=== PATIENT | female | born 1990 | race African-American/Black ===

== ENCOUNTER 2017-05-10 23:20 | Emergency (ER) | payer SELFPAY ==
[~2017-05-10] VITALS: Ht 162.6 cm; Wt 81.6 kg
[2017-05-10 23:23] VITALS: BP 137/90
--- NOTE | 2017-05-10 23:31 | NUR ---
TO LOBBY, A/W CHUCHO SHAIKH ERMD NOTED
--- NOTE | 2017-05-11 00:55 | NUR ---
PT. AMBULATED TO ER BED 3
--- NOTE | 2017-05-11 01:05 | NUR ---
PATIENT PRESENTS TO ED WITH C/O GEN BODY ACHES X 1 DA . PT DENIES N/V/D; SKIN IS PINK/WARM/DRY; AAOX4 WITH EVEN AND STEADY GAIT; LUNGS CLEAR BL; HR EVEN AND REGULAR; PT DENIES ANY FEVER, CP, SOB, OR COUGH AT THIS TIME; PATIENT STATES PAIN OF 10/10 AT THIS TIME; VSS; PATIENT POSITIONED FOR COMFORT; HOB ELEVATED; BEDRAILS UP X2; BED DOWN. ER MD MADE AWARE OF PT STATUS.
--- NOTE | 2017-05-11 01:17 | NUR ---
PT. AMBULATED TO ER OF 3
[2017-05-11] MEDS ORDERED: CYCLOBENZAPRINE 10 MG TAB PO ONE (01:20)
[2017-05-11] MEDS ORDERED: IBUPROFEN 600 MG TAB PO ONE (01:20)
[2017-05-11 02:16] VITALS: BP 138/87
--- NOTE | 2017-05-11 02:17 | NUR ---
Patient discharged with v/s stable. Written and verbal after care instructions given and explained. Patient alert, oriented and verbalized understanding of instructions. Ambulatory with steady gait. All questions addressed prior to discharge. ID band removed. Patient advised to follow up with PMD. Rx of FLEXERIL 10 MG, MOTRIN 600 MG given. Patient educated on indication of medication including possible reaction and side effects. Opportunity to ask questions provided and answered.
== END 2017-05-11 02:17 | disposition home or self-care (01) ==
LOC: MED 23:20
DX: M62.830 Muscle spasm of back (principal)
CPT/HCPCS: 99283

== ENCOUNTER 2018-01-18 04:17 | Emergency (ER) | payer SELFPAY ==
[~2018-01-18] VITALS: Ht 167.6 cm; Wt 84.4 kg
--- NOTE | 2018-01-18 04:25 | NUR ---
PT PRESENTS TO ED WITH LEFT EAR PAIN, 10/, X3 DAYS. LEFT EAR CANAL EDEMA, NO REDNESS OR DRAINAGE, EXCESS CERUMEN. PT IS AFEBRILE. A&OX4. POSITIONED IN BED FOR COMFORT WITH VSS. ER MD AWARE. CONTINUE TO MONITOR.
--- NOTE | 2018-01-18 04:25 | NUR ---
PT AMBULATED TO BED 2 WITH VSS.
[2018-01-18 04:29] VITALS: BP 184/121
[2018-01-18] MEDS ORDERED: fentaNYL 0.05 MG/ML VIAL IM ONE (04:40)
[2018-01-18 05:10] VITALS: BP 184/121
--- NOTE | 2018-01-18 05:10 | NUR ---
Patient discharged with v/s stable and decreased pain. Written and verbal after care instructions given and explained. Patient alert, oriented and verbalized understanding of instructions. Ambulatory with steady gait. All questions addressed prior to discharge. ID band removed. Patient advised to follow up with PMD. Rx of Motrin and Ciprodex given. Patient educated on indication of medication including possible reaction and side effects. Opportunity to ask questions provided and answered.
== END 2018-01-18 05:10 | disposition home or self-care (01) ==
LOC: MED 04:17
DX: H60.502 Unspecified acute noninfective otitis externa, left ear (principal); R03.0 Elevated blood-pressure reading, without diagnosis of hypertension
CPT/HCPCS: 96372; 99283; J3010; 99284

== ENCOUNTER 2019-03-19 20:18 | Emergency (ER) | payer SELFPAY ==
[~2019-03-19] VITALS: Ht 167.6 cm; Wt 85.7 kg
[2019-03-19 20:22] VITALS: BP 158/94
--- NOTE | 2019-03-19 20:48 | NUR ---
PT TO ER BED 4
--- NOTE | 2019-03-19 20:51 | NUR ---
29 Y/O F PRESENTS TO ED WITH C/O HEAVY CHEST PAIN THAT HAS BEEN ONGOING FOR THREE MONTHS. PATIENT CAME IN TO ED BECAUSE OF WORSENING SYMPTOMS THAT IS PREVENTING PATIENT FROM PERFORMING ADL'S AND WORKING. PATIENT REPORTS GETTING WINDED AND HAS TO SIT DOWN TO ALLEVIATE PRESSURE IN CHEST. NKA, NO PAST MEDICAL HX, DOES NOT TAKE MEDICATION FOR SYMPTOMS. PT REPORTS PAIN CAUSES HEADACHES AND DIZZINESS, RATES PAIN 8/10. REPORTS + FAMILY HISTORY OF HTN. BP- 153/98. SIDERAILS UPx1, FRIEND AT BEDSIDE. WILL CONTINUE TO MONITOR.
[2019-03-19] MEDS ORDERED: KETOROLAC 30 MG/ML VIAL IM ONE (21:15)
[2019-03-19 21:35] LABS: BASOPHILS # (AUTO) 0.1 K/uL (0.00-0.22); BASOPHILS % (AUTO) 1.3 % (0.0-2.0); EOSINOPHILS # (AUTO) 0.1 K/uL (0-0.4); EOSINOPHILS % (AUTO) 0.9 % (0.0-4.0); HEMATOCRIT 28.1 % (36-48); LYMPHOCYTES # (AUTO) 1.6 K/uL (2.5-16.5); MEAN CORPUSCULAR HEMOGLOBIN 16 pg (27-31); MEAN CORPUSCULAR HGB CONC 28 g/dL (33-37); MEAN CORPUSCULAR VOLUME 58.2 fL (80-94); MONOCYTES # (AUTO) 0.4 K/uL (0.8-1.0); MONOCYTES % (AUTO) 6.7 % (1.7-9.3); NEUTROPHILS # (AUTO) 4.3 K/uL (1.8-7.7); NEUTROPHILS % (AUTO) 66.1 % (42.2-75.2); PLATELET COUNT (AUTO) 274 K/uL (140-450); RED BLOOD CELL COUNT(AUTO) 4.84 MIL/uL (4.20-5.40); RED CELL DISTRIBUTION WIDTH 20.8 % (11.6-13.7); WHITE BLOOD COUNT (AUTO) 6.5 K/uL (4.8-10.8)
--- NOTE | 2019-03-19 21:35 | NUR ---
PATIENT AMBULATED TO RESTROOM FOR URINE SAMPLE, NO INCIDENTS AND NO COMPLAINTS OF GETTING WINDED. PATIENT ABLE TO MAKE FULL SENTENCES, RESPIRATIONS ARE EVEN AND UNLABORED. URINE SAMPLE COLLECTED.
[2019-03-19 22:11] LABS: PROTHROMBIN TIME 9.7 secs (10.8-13.4)
[2019-03-19 22:15] LABS: APPEARANCE,URINE SL CLOUDY (CLEAR); BILIRUBIN,URINE NEGATIVE (NEGATIVE); BLOOD, URINE TRACE-I (NEGATIVE); COLOR,URINE YELLOW (YELLOW); LEUKOCYTE ESTERASE ,URINE 1+ (NEGATIVE); NITRITE, URINE NEGATIVE (NEGATIVE); PH,URINE 6.5 (5.0-9.0); UGLUCOSE NEGATIVE (NEGATIVE)
[2019-03-19 22:27] LABS: WBC,URINE TOO MANY TO COUNT /HPF (0-5)
[2019-03-19 22:36] LABS: ANION GAP 12.9 (8-16); CARBON DIOXIDE 25.8 mmol/L (21-32); POTASSIUM 3.7 mmol/L (3.5-5.1)
[2019-03-19 22:37] LABS: CREATININE 0.7 mg/dL (0.6-1.3); TOTAL BILIRUBIN 0.5 mg/dL (0.0-1.0)
[2019-03-19 22:38] LABS: ALBUMIN 3.8 g/dL (3.4-5.0)
--- NOTE | 2019-03-19 23:08 | NUR ---
Dr. England examining patient.
[2019-03-19 23:32] VITALS: BP 148/96
--- NOTE | 2019-03-19 23:33 | NUR ---
Patient discharged with v/s stable. Written and verbal after care instructions given and explained. Patient alert, oriented and verbalized understanding of instructions. Ambulatory with steady gait. All questions addressed prior to discharge. ID band removed. Patient advised to follow up with PMD. Rx of NAPROSYN AND FEOSOL given. Patient educated on indication of medication including possible reaction and side effects. Opportunity to ask questions provided and answered.
== END 2019-03-19 23:33 | disposition home or self-care (01) ==
LOC: MED 20:18
DX: R07.9 Chest pain, unspecified (principal); D64.9 Anemia, unspecified
CPT/HCPCS: 36415; 71045; 80053; 81001; 81025; 83880; 84484; 85025; 85610; 85730; 87086; 93005; 96372; 99284; J1885; Q0092

== ENCOUNTER 2019-04-28 08:50 | Emergency (ER) | payer SELFPAY ==
[~2019-04-28] VITALS: Ht 170.2 cm; Wt 84.8 kg
[2019-04-28 09:01] VITALS: BP 184/112
--- NOTE | 2019-04-28 09:01 | NUR ---
Patient ambulated to bed 1. RN evaluating patient at bedside.
[2019-04-28] MEDS ORDERED: cloNIDine 0.1 MG TAB PO ONE (09:25)
--- NOTE | 2019-04-28 09:52 | NUR ---
C/O PRESSURE TYPE HEADACHES, INCREASED IN FREQUENCY ---STATED YESTERDAY AND AWOKE WITH SEVERE PAIN TODAY ; NAUSEA DIZZINESS.PT AWAKE ,ALERT,AFEBRILE. DENIES RECENT INJURY--FULL CLEAR SPEECH, AMBULATORY WITH STEADY GAIT, NO FACIAL ASYMMETRY NOTED HX--MIGRAINE , ANEMIA RX--IRON
--- NOTE | 2019-04-28 09:57 | NUR ---
PT PAIN LEVEL AT 0/10.
[2019-04-28 10:54] LABS: BASOPHILS # (AUTO) 0.1 K/uL (0.00-0.22); BASOPHILS % (AUTO) 1.8 % (0.0-2.0); EOSINOPHILS # (AUTO) 0.1 K/uL (0-0.4); EOSINOPHILS % (AUTO) 1.8 % (0.0-4.0); HEMATOCRIT 28.8 % (36-48); HEMOGLOBIN 8.3 g/dL (12.0-16.0); LYMPHOCYTES # (AUTO) 1.1 K/uL (2.5-16.5); LYMPHOCYTES % (AUTO) 22.8 % (20.5-51.1); MEAN CORPUSCULAR HEMOGLOBIN 18 pg (27-31); MEAN CORPUSCULAR HGB CONC 29 g/dL (33-37); MEAN CORPUSCULAR VOLUME 61.8 fL (80-94); MONOCYTES # (AUTO) 0.4 K/uL (0.8-1.0); MONOCYTES % (AUTO) 7.6 % (1.7-9.3); NEUTROPHILS # (AUTO) 3.1 K/uL (1.8-7.7); PLATELET COUNT (AUTO) 222 K/uL (140-450); RED BLOOD CELL COUNT(AUTO) 4.66 MIL/uL (4.20-5.40); RED CELL DISTRIBUTION WIDTH 23.9 % (11.6-13.7); WHITE BLOOD COUNT (AUTO) 4.6 K/uL (4.8-10.8)
[2019-04-28 11:10] LABS: APPEARANCE,URINE CLEAR (CLEAR); BILIRUBIN,URINE NEGATIVE (NEGATIVE); BLOOD, URINE NEGATIVE (NEGATIVE); COLOR,URINE YELLOW (YELLOW); LEUKOCYTE ESTERASE ,URINE NEGATIVE (NEGATIVE); NITRITE, URINE NEGATIVE (NEGATIVE); PH,URINE 8.5 (5.0-9.0); UGLUCOSE NEGATIVE (NEGATIVE)
[2019-04-28 11:19] LABS: ALBUMIN 3.7 g/dL (3.4-5.0); ANION GAP 13.5 (8-16); CARBON DIOXIDE 27.3 mmol/L (21-32); CREATININE 0.6 mg/dL (0.6-1.3); POTASSIUM 3.8 mmol/L (3.5-5.1); THYROID STIMULATING HORMONE 1.32 uIU/mL (0.34-3.74); TOTAL BILIRUBIN 0.3 mg/dL (0.0-1.0)
[2019-04-28] MEDS ORDERED: ONDANSETRON 4 MG ODT PO ONE (11:25)
--- NOTE | 2019-04-28 11:25 | NUR ---
dr esqueda reevaluating pt at bedside.
[2019-04-28 11:59] VITALS: BP 128/82
--- NOTE | 2019-04-28 12:00 | NUR ---
Patient discharged with v/s stable. Written and verbal after care instructions given and explained headache. Patient alert, oriented and verbalized understanding of instructions. Ambulatory with steady gait. All questions addressed prior to discharge. ID band removed. Patient advised to follow up with PMD. Rx of hydrochlorothiazide given. Patient educated on indication of medication including possible reaction and side effects. Opportunity to ask questions provided and answered. Excuse from work given.
== END 2019-04-28 12:00 | disposition home or self-care (01) ==
LOC: MED 08:50
DX: R51 Headache (principal); I10 Essential (primary) hypertension
CPT/HCPCS: 36415; 80053; 81003; 81025; 84443; 84484; 85025; 99283; Q0162

== ENCOUNTER 2019-07-04 09:57 | Emergency (ER) | payer SELFPAY ==
[~2019-07-04] VITALS: Ht 170.2 cm; Wt 80.8 kg
[2019-07-04 10:02] VITALS: BP 138/64
[2019-07-04 10:37] VITALS: BP 138/64
== END 2019-07-04 10:37 | disposition home or self-care (01) ==
LOC: MED 09:57
DX: G43.909 Migraine, unspecified, not intractable, without status migrainosus (principal); I10 Essential (primary) hypertension
CPT/HCPCS: 99283

== ENCOUNTER 2020-01-02 12:24 | Emergency (ER) | payer SELFPAY ==
[~2020-01-02] VITALS: Ht 170.2 cm; Wt 81.6 kg
[2020-01-02 12:36] VITALS: BP 138/111
--- NOTE | 2020-01-02 12:43 | NUR ---
AMB TO BED 2
[2020-01-02 14:03] LABS: BASOPHILS % (AUTO) 0.8 % (0.0-2.0); EOSINOPHILS # (AUTO) 0.1 K/uL (0-0.4); EOSINOPHILS % (AUTO) 2.4 % (0.0-4.0); HEMATOCRIT 35.9 % (36-48); HEMOGLOBIN 11.4 g/dL (12.0-16.0); LYMPHOCYTES # (AUTO) 1.2 K/uL (2.5-16.5); LYMPHOCYTES % (AUTO) 21.7 % (20.5-51.1); MEAN CORPUSCULAR HEMOGLOBIN 24 pg (27-31); MEAN CORPUSCULAR HGB CONC 32 g/dL (33-37); MEAN CORPUSCULAR VOLUME 74.1 fL (80-94); MONOCYTES # (AUTO) 0.7 K/uL (0.8-1.0); MONOCYTES % (AUTO) 13.7 % (1.7-9.3); NEUTROPHILS # (AUTO) 3.4 K/uL (1.8-7.7); NEUTROPHILS % (AUTO) 61.4 % (42.2-75.2); PLATELET COUNT (AUTO) 219 K/uL (140-450); RED BLOOD CELL COUNT(AUTO) 4.84 MIL/uL (4.20-5.40); RED CELL DISTRIBUTION WIDTH 15.5 % (11.6-13.7); WHITE BLOOD COUNT (AUTO) 5.5 K/uL (4.8-10.8)
--- NOTE | 2020-01-02 14:13 | NUR ---
29 Y/O FEMALE C/O RIGHT SIDED BREAST PAIN X9 DAYS. PT STATES PAIN BEGAN ON FIRST DAY OF MENSTRUAL CYCLE AND HAS BEEN INTERMITTENT. PAIN IS SHARP IN CHARACTER AND DOES NOT RADIATE. PT DENIES ANY SOB/COUGH/FEVER AT THIS TIME. NO LUMPS FELT UPON PALPATION. NO ABNORMALITIES NOTED ON BREAST.
[2020-01-02 14:32] LABS: ALBUMIN 3.5 g/dL (3.4-5.0); ANION GAP 13.4 (8-16); CARBON DIOXIDE 26.5 mmol/L (21-32); CREATININE 0.8 mg/dL (0.6-1.3); POTASSIUM 3.9 mmol/L (3.5-5.1); THYROID STIMULATING HORMONE 1.16 uIU/mL (0.34-3.74); TOTAL BILIRUBIN 0.3 mg/dL (0.0-1.0)
[2020-01-02 16:59] LABS: APPEARANCE,URINE HAZY (CLEAR); BILIRUBIN,URINE NEGATIVE (NEGATIVE); BLOOD, URINE NEGATIVE (NEGATIVE); COLOR,URINE YELLOW (YELLOW); LEUKOCYTE ESTERASE ,URINE 1+ (NEGATIVE); NITRITE, URINE NEGATIVE (NEGATIVE); PH,URINE 6.5 (5.0-9.0); UGLUCOSE NEGATIVE (NEGATIVE)
[2020-01-02 17:00] LABS: RBC,URINE NONE SEEN /HPF (0-5); WBC,URINE 0-5 /HPF (0-5)
[2020-01-02 18:25] VITALS: BP 127/87
== END 2020-01-02 18:26 | disposition home or self-care (01) ==
LOC: MED 12:24
DX: R07.9 Chest pain, unspecified (principal); I10 Essential (primary) hypertension
CPT/HCPCS: 36415; 71045; 76641; 80053; 81001; 81025; 84443; 84484; 84702; 85025; 87086; 93005; 99285; Q0092

== ENCOUNTER 2020-03-27 10:20 | Emergency (ER) | payer OTHER, SELFPAY ==
[~2020-03-27] VITALS: Ht 170.2 cm; Wt 88.5 kg
[2020-03-27 10:35] VITALS: BP 152/101
--- NOTE | 2020-03-27 10:35 | NUR ---
Patient in tent for covid precautions
--- NOTE | 2020-03-27 11:13 | NUR ---
C/O COUGH, CHEST PAIN WITH SOB, FEVER, NAUSEA SINCE THANKSGIVING. DENIES COVID CONTACTS. STATES FEVER REOCCURING EVERYDAY. NO MEDS TAKEN TODAY FOR FEVER. TEMP 100.8 TEMPORAL IN TENT
[2020-03-27 11:35] VITALS: BP 152/101
--- NOTE | 2020-03-27 11:35 | NUR ---
Covid swab collected and walked to lab.
--- NOTE | 2020-03-27 11:35 | NUR ---
Patient discharged with v/s stable. Written and verbal after care instructions given and explained. Patient verbalized understanding. Ambulatory with steady gait. All questions addressed prior to discharge. Advised to follow up with PMD.
--- NOTE | 2020-04-01 13:53 | NUR ---
Covid results received from lab. Results = POSITIVE. Hard copy requested from lab and placed in infection controls mailbox.
== END 2020-03-27 11:35 | disposition home or self-care (01) ==
LOC: MED 10:20
DX: U07.1 COVID-19 (principal); I10 Essential (primary) hypertension
CPT/HCPCS: 99283; U0003

== ENCOUNTER 2021-02-17 18:40 | Emergency (ER) | payer OTHER, SELFPAY ==
[~2021-02-17] VITALS: Ht 170.2 cm; Wt 81.6 kg
[2021-02-17 19:03] VITALS: BP 186/104
--- NOTE | 2021-02-17 19:12 | NUR ---
PT AMB TO BED 9.
--- NOTE | 2021-02-17 19:40 | NUR ---
Dr. العلي examining patient.
[2021-02-17] MEDS ORDERED: IBUP-2213 PO (19:56)
--- NOTE | 2021-02-17 19:58 | NUR ---
PT EVALUATED BY ERMD. NO NURSING INTERVENTIONS NEEDED.
[2021-02-17 20:00] VITALS: BP 186/104
== END 2021-02-17 20:00 | disposition home or self-care (01) ==
LOC: MED 18:40
DX: R59.1 Generalized enlarged lymph nodes (principal); R07.9 Chest pain, unspecified; R22.1 Localized swelling, mass and lump, neck; I10 Essential (primary) hypertension
CPT/HCPCS: 99282

== ENCOUNTER 2021-10-19 10:11 | Observation (INO) | payer OTHER ==
[~2021-10-19] VITALS: Ht 170.2 cm; Wt 82.6 kg
[~2021-10-19 10:11] MED LIST: IBUP-2213 PO
[2021-10-19 10:14] VITALS: BP 117/97
[2021-10-19 10:49] LABS: BASOPHILS # (AUTO) 0.1 K/uL (0.00-0.22); BASOPHILS % (AUTO) 1.4 % (0.0-2.0); EOSINOPHILS # (AUTO) 0.1 K/uL (0-0.4); EOSINOPHILS % (AUTO) 2.5 % (0.0-4.0); HEMATOCRIT 27.4 % (36-48); HEMOGLOBIN 7.9 g/dL (12.0-16.0); LYMPHOCYTES # (AUTO) 1.5 K/uL (2.5-16.5); LYMPHOCYTES % (AUTO) 34.9 % (20.5-51.1); MEAN CORPUSCULAR HEMOGLOBIN 17 pg (27-31); MEAN CORPUSCULAR HGB CONC 29 g/dL (33-37); MEAN CORPUSCULAR VOLUME 58.4 fL (80-94); MONOCYTES # (AUTO) 0.4 K/uL (0.8-1.0); MONOCYTES % (AUTO) 10.6 % (1.7-9.3); NEUTROPHILS # (AUTO) 2.1 K/uL (1.8-7.7); NEUTROPHILS % (AUTO) 50.6 % (42.2-75.2); PLATELET COUNT (AUTO) 271 K/uL (140-450); RED BLOOD CELL COUNT(AUTO) 4.69 MIL/uL (4.20-5.40); RED CELL DISTRIBUTION WIDTH 20.9 % (11.6-13.7); WHITE BLOOD COUNT (AUTO) 4.2 K/uL (4.8-10.8)
--- NOTE | 2021-10-19 10:50 | NUR ---
31 y/o female, c/o nausea, gradually worsening chest pain with associated palpitations, radiates to her back and down her arm for 2 weeks. states pain is severe when it comes on and describes it as sharp/burning. states that pcp referred her to sales service route manager because of an abnormal EKG and heart murmur. states says she was told that her ultrasound showed there was a "hole" in her heart. pt scheduled to follow-up with Cardiology on 11/16. pt states her father of a heart attack at age 45. Patient is currently on Losartan, atenolol, and hydrochlorothiazide after going 3 years with no hypertension medication. pmh: htn nka med: losartan, atenolol, hydrochlorothiazine
[2021-10-19] MEDS ORDERED: NITROGLYCERIN 0.4 MG TAB SL ONE (10:55)
[2021-10-19] MEDS ORDERED: ASPIRIN 325 MG TAB PO ONE (10:55)
[2021-10-19 11:11] LABS: ALBUMIN 3.6 g/dL (3.4-5.0); ANION GAP 9.9 (8-16); ASPARTATE AMINOTRANSFERASE 14 U/L (15-37); CHLORIDE 102 mmol/L (98-107); CREATININE 0.7 mg/dL (0.6-1.3); GFR ARICAN-AMERICAN 127 mL/min (>90); GLUCOSE 87 mg/dL (74-106); POTASSIUM 3.9 mmol/L (3.5-5.1); SODIUM SERUM 135 mmol/L (136-145); TOTAL BILIRUBIN 0.5 mg/dL (0.0-1.0); UREA NITROGEN, BLOOD 13 mg/dL (7-18)
[2021-10-19] MEDS ORDERED: ATEN25TA7 PO (11:55)
[2021-10-19] MEDS ORDERED: LOSA25TA43 PO (11:55)
--- NOTE | 2021-10-19 12:08 | NUR ---
ALAN SWAB SENT TO LAB
--- NOTE | 2021-10-19 12:45 | NUR ---
Patient appears to be resting comfortably in bed. Vital Signs within normal limits. Respirations even and unlabored.
--- NOTE | 2021-10-19 13:07 | NUR ---
shaikh eleanor at bedside for pt eval. per , states he will put in admitting orders.
[2021-10-19] MEDS ORDERED: ACETAMINOPHEN 325 MG TAB PO PRN (13:10)
[2021-10-19] MEDS ORDERED: MORPHINE SULFATE 2 MG/ML SYR IVP PRN (13:10)
[2021-10-19] MEDS ORDERED: ONDANSETRON 4 MG/2 ML VIAL IVP PRN (13:10)
--- NOTE | 2021-10-19 14:50 | NUR ---
RECEIVE ENDORSEMENT FROM ER NURSE THAT PATIENT COME FROM HOME W/ CHEST PAIN, NAUSEA, PALPITATION. IN ER NITROGLYCERIN AND ASPIRIN WAS GIVEN. PATIENT IS ADMIT UNDER FOR OBSERVATION STATUS FOR CHEST PAIN. MRSA SPECIMEN COLLECTED. STILL WAIN FOR URINE AT THIS TIME. WILL CONTINUE TO MONITOR.
--- NOTE | 2021-10-19 15:02 | NUR ---
Patient will be admitted to care of Shaikh ESTEPHANIA. Admitted to Telemetry. Will go to room 105B. Belongings list completed. Report to Elenita HOPE.
--- NOTE | 2021-10-19 15:02 | NUR ---
Pt report given to Elenita HOPE. Transfer of care at this time.
[2021-10-19 16:00] VITALS: BP 122/78
--- NOTE | 2021-10-19 19:09 | NUR ---
ENDORSE PT TO PM SHIFT NURSE THAT PATIENT SITTING ON THE BED WITH SISTER AT BEDSIDE. PIV R. FOREARM 20G SALINE LOCK PATENT.
--- NOTE | 2021-10-19 19:30 | NUR ---
RECEIVED PT FROM AM NURSE FOR CONTINUITY OF CARE.PT IS ASTABLE
[2021-10-19 20:00] VITALS: BP 126/78
--- NOTE | 2021-10-19 21:00 | NUR ---
PATIENT IN BED ,NO COMPLAIN OF PAIN NOTED VS WNL,NO DISTRESS NOTED
[2021-10-20] VITALS: BP 111/74
[2021-10-20 04:00] VITALS: BP 136/80
[2021-10-20 06:58] LABS: BASOPHILS # (AUTO) 0.1 K/uL (0.00-0.22); BASOPHILS % (AUTO) 1.4 % (0.0-2.0); EOSINOPHILS # (AUTO) 0.2 K/uL (0-0.4); EOSINOPHILS % (AUTO) 3.4 % (0.0-4.0); HEMATOCRIT 26.3 % (36-48); HEMOGLOBIN 7.7 g/dL (12.0-16.0); LYMPHOCYTES # (AUTO) 1.8 K/uL (2.5-16.5); LYMPHOCYTES % (AUTO) 40.5 % (20.5-51.1); MEAN CORPUSCULAR HEMOGLOBIN 17 pg (27-31); MEAN CORPUSCULAR HGB CONC 29 g/dL (33-37); MEAN CORPUSCULAR VOLUME 58.5 fL (80-94); MONOCYTES # (AUTO) 0.4 K/uL (0.8-1.0); MONOCYTES % (AUTO) 8.9 % (1.7-9.3); NEUTROPHILS % (AUTO) 45.8 % (42.2-75.2); PLATELET COUNT (AUTO) 255 K/uL (140-450); RED BLOOD CELL COUNT(AUTO) 4.49 MIL/uL (4.20-5.40); RED CELL DISTRIBUTION WIDTH 20.5 % (11.6-13.7); WHITE BLOOD COUNT (AUTO) 4.4 K/uL (4.8-10.8)
[2021-10-20 07:09] LABS: ALBUMIN 3.4 g/dL (3.4-5.0); ANION GAP 7.6 (8-16); CARBON DIOXIDE 29.2 mmol/L (21-32); CREATININE 0.7 mg/dL (0.6-1.3); MAGNESIUM 1.9 mg/dL (1.8-2.4); PHOSPHORUS 3.3 mg/dL (2.5-4.9); POTASSIUM 3.8 mmol/L (3.5-5.1); TOTAL BILIRUBIN 0.3 mg/dL (0.0-1.0)
--- NOTE | 2021-10-20 07:30 | NUR ---
RECEIVED REPORT FROM FACTORY ASSEMBLER. PT IS ALERT AND ORIENTED X4. RESPIRATION EVEN, UNLABORED, ON ROOM AIR, IV ON RIGHT FA 20G, INTACT AND PATENT. PT IS AMBULATORY, SKIN INTACT, DRY. PT WILL HAVE ECHO TODAY. POINT OF CARE DISCUSSED, WILL CONTINUE CARE, ALL SAFETY MEASURES IN PLACE, CALL LIGHT WITHIN REACH.
[2021-10-20 08:00] VITALS: BP 117/84
--- NOTE | 2021-10-20 08:34 | NUR ---
PATIENT HAS BEEN SCREENED AND CATEGORIZED LOW NUTRITION RISK. PATIENT WILL BE SEEN WITHIN 7 DAYS OF ADMISSION. 10/26/[address]
--- NOTE | 2021-10-20 08:45 | NUR ---
ECHOCARDIOGRAM BEING COMPLETED AT BEDSIDE BY COMPLIANCE COUNSEL. WILL WAIT FOR RESULTS. PT IS STABLE.
--- NOTE | 2021-10-20 09:30 | NUR ---
PT RESTING ON BED, RESPIRATION EVEN, UNLABORED, NO DISTRESS NOTED. ALL SAFETY MEASURE IN PLACE, CALL LIGHT WITHIN REACH, WILL CONTINUE TO MONITOR.
[2021-10-20 12:00] VITALS: BP 128/89
--- NOTE | 2021-10-20 13:35 | NUR ---
DC PLANNING: THE PATIENT PRESENTED FROM HOME WITH C/O 2 WEEK H/O CHEST PAIN WITH NAUSEA. H/O HTN AND ABNORMAL EKG RESULTS OF HEART MURMUR. B/P ON PRESENTATION WAS 117/97, GIVEN ASA, NITROSTAT, ZOFRAN AND MORPHINE. EKG IN ER NEGATIVE FOR STEMI, CXRAY NEGATIVE FOR FINDINGS. TROPONINS NOT ELEVATED, CARDIOLOGY CONSULT ORDERED. CONTINUED ON MORPHINE, TYLENOL AND ZOFRAN. B/P MAX TODAY IS 128/89, ANTICIPATE PATIENT WILL DC HOME WHEN CLINICALLY STABLE AND CLEARED BY CARDIOLOGY. CM WILL FOLLOW.
--- NOTE | 2021-10-20 14:30 | NUR ---
ROUNDED ON PT. NO DISTRESS NOTED. LAYING IN SEMI FOWLERS POSITION. ALL QUESTIONS ANSWERED. SHE WANTED TO KNOW WHEN THE ALL ROUND LOGGER WAS PLANNING ON SEEING HER. NOTIFIED DR. PATINO WITH THAT QUESTION. WILL WAIT FOR RESPONSE. PT STATED THE ROOM WAS WARM, NOTIFIED ENGINEERING AND THEY STATED THEY WILL CHECK THE ROOM SHORTLY.
[2021-10-20 16:00] VITALS: BP 124/82
[2021-10-20 17:00] VITALS: BP 124/82
--- NOTE | 2021-10-20 17:45 | NUR ---
PT IS DISCHARGED. PT IS AWAKE AND ALERT. ON RA WITH BREATHING UNLABORED. VS ARE STABLE. NO DISTRESS NOTED. ALL DISCHARGE INSTRUCTIONS DISCUSSED AND PT VERBALIZED UNDERSTANDING. IV WAS REMOVED. ID BAND WAS REMOVED. PT IS STABLE. LEFT FROM THE HOSPITAL WITH FRIEND, AMBULATED OUT OF HOSPITAL.
== END 2021-10-20 17:45 | disposition home or self-care (01) ==
LOC: MED 10:11 → MTU 13:11
PROVIDERS: ADMIT Internal Medicine; ATTEND Internal Medicine
DX: R07.89 Other chest pain (principal); Z20.822 Contact with and (suspected) exposure to COVID-19; I20.9 Angina pectoris, unspecified; I10 Essential (primary) hypertension; E66.9 Obesity, unspecified; Z79.899 Other long term (current) drug therapy
CPT/HCPCS: 36415; 71045; 80053; 83735; 83880; 84100; 84484; 85025; 85379; 87081; 87426; 93005; 99285; C8929; G0378; Q0092

== ENCOUNTER 2023-02-27 09:35 | Emergency (ER) | payer SELFPAY ==
[~2023-02-27] VITALS: Ht 170.2 cm; Wt 81.6 kg
[~2023-02-27 09:35] MED LIST changes: +ATEN25TA7 PO; +LOSA25TA43 PO
[2023-02-27 09:51] VITALS: BP 172/98; PULSE 90; RESP 18; TEMP 97; O2SAT 100
[2023-02-27] MEDS ORDERED: CIPR7.5S OT (11:15)
[2023-02-27] MEDS ORDERED: CARB15DR61 OT (11:15)
[2023-02-27 11:22] VITALS: BP 172/98; PULSE 90; RESP 18; TEMP 97; O2SAT 100
== END 2023-02-27 11:21 | disposition home or self-care (01) ==
LOC: MED 09:35
DX: H61.21 Impacted cerumen, right ear (principal); H60.91 Unspecified otitis externa, right ear; I10 Essential (primary) hypertension; Z79.899 Other long term (current) drug therapy; Z79.1 Long term (current) use of non-steroidal anti-inflammatories (NSAID); Z79.2 Long term (current) use of antibiotics
CPT/HCPCS: 69210; 99284